=== PATIENT | male | born 1950 | race Caucasian/White ===

== ENCOUNTER → 2018-07-15 | Outpatient (CLI) | payer MEDICARE ==
[~2018-07-15] MED LIST: ASPI325T25 PO
[2018-07-15 10:11] LABS: HEMATOCRIT 47.9 % (42.0-52.0); HEMOGLOBIN 15.9 g/dl (13.5-17.5); MEAN CORPUSCULAR HEMOGLOBIN 28.5 pg (27.0-33.0); MEAN CORPUSCULAR HGB CONC 33.2 g/dl (32.0-36.5); PLATELET COUNT, AUTOMATED 290 10^3/uL (150-450); RED BLOOD COUNT 5.57 10^6/uL (4.30-6.10); WHITE BLOOD COUNT 7.9 10^3/uL (4.0-10.0)
[2018-07-15 10:24] LABS: INR 0.97
[2018-07-15 10:44] LABS: ERYTHROCYTE SEDIMENTATION RATE 2 mm/hr (0-20)
[2018-07-15 11:13] LABS: ALT/SGPT 28 U/L (12-78); BLOOD UREA NITROGEN 13 MG/DL (7-18); CALCIUM LEVEL 9.2 MG/DL (8.8-10.2); CARBON DIOXIDE LEVEL 23 MEQ/L (21-32); CHLORIDE LEVEL 105 MEQ/L (98-107); CREATININE FOR GFR 1.07 MG/DL (0.70-1.30); GLOMERULAR FILTRATION RATE > 60.0 (>49); GLUCOSE, FASTING 98 MG/DL (70-100); POTASSIUM SERUM 4.5 MEQ/L (3.5-5.1); SODIUM LEVEL 139 MEQ/L (136-145)
[2018-07-15 11:14] LABS: ALBUMIN 3.9 GM/DL (3.2-5.2); BILIRUBIN,TOTAL 0.7 MG/DL (0.2-1.0); TOTAL PROTEIN 7.4 GM/DL (6.4-8.2)
--- NOTE | 2018-07-15 12:17 | REP ---
Chest two views HISTORY: Left knee arthritis Comparison: None The lungs are clear. The heart is normal in size. The pulmonary vasculature is normal in appearance. The bony structure is intact. IMPRESSION: No acute disease. Electronically Signed by Giorgio Sherwood MD 07/15/2018 12:07 P
--- NOTE | 2018-07-15 22:30 | ECGEPIP ---
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 Low limb lead voltages. No prior ECG available for comparison at the time of interpretation. Electronically Signed On 07-15-2018 22:30:06 EST by Alec Lange
== END ==
LOC: M LAB 09:04
PROVIDERS: ATTEND Orthopaedic Surgery
DX: Z01.818 Encounter for other preprocedural examination (principal)

== ENCOUNTER 2018-07-29 07:30 | Inpatient (IN) | payer MEDICARE ==
--- NOTE | 2018-07-27 15:46 | HPE ---
DATE OF ADMISSION: 07/29/2018 CHIEF COMPLAINT: Left knee pain. HISTORY OF PRESENT ILLNESS: This is a pleasant 68-year-old male with progressively worsening left knee pain and stiffness. He has failed to improve with conservative treatment. He has elected for surgery for his continued symptoms. He has pain with weightbearing activities and his activities of daily living. X-rays of his knee are notable for advanced osteoarthritis of the left knee joint. He has consented for a left total knee arthroplasty by Dr. Erik Chung. Medical optimization was performed by Dr. Nieto's office. ALLERGIES: PENICILLIN and LIDOCAINE WITH EPINEPHRINE causes him tachycardia. CURRENT MEDICATIONS: None. PAST MEDICAL HISTORY: None. PAST SURGICAL HISTORY: Open reduction internal fixation (ORIF) complex right acetabular fracture in 1966, ORIF right wrist in 1976, spontaneous pneumothorax in 1997, and a right total hip replacement in 2001 and a hernia repair in 2011. SOCIAL HISTORY: This patient is retired. He does not smoke and rarely drinks alcohol. FAMILY HISTORY: Noncontributory. REVIEW OF SYSTEMS: This patient denies chest pain, heart palpitations, cough, wheezing, difficulty breathing and shortness of breath. He denies abdominal pain, nausea, vomiting, diarrhea or constipation. He denies recent upper respiratory infection or urinary tract infection symptoms. He does complain of persistent pain in his left knee and pain with weightbearing activities in the left knee. PHYSICAL EXAMINATION: GENERAL: He is a well-nourished, well-developed, in no acute distress, alert male patient. He walks with a Trendelenburg gait from his right total hip arthroplasty. He is not using assistive devices. VITAL SIGNS: Blood pressure 124/82, pulse 72, temperature of 97.8, height is 65, weight 152, respirations of 18. NECK: Supple without adenopathy or jugular venous distension. There were no carotid bruits appreciated upon auscultation. LUNGS: Clear to auscultation without rales or wheeze throughout. HEART: Regular rate and rhythm. ABDOMEN: Bowel sounds were present. EXTREMITIES: Examination of the knee revealed intact skin. He had decreased range of motion secondary to pain and stiffness. The limb was neurovascularly intact. LABORATORY DATA: EKG showed sinus rhythm at 62 beats per minute. Chest x-ray showed no acute cardiopulmonary disease processes. Prothrombin time 13.0, INR 0.97. CBC within normal limits. Sedimentation rate was 2, glucose 98, BUN 13, creatinine 1.07, sodium 139, potassium 4.5. IMPRESSION: Symptomatic osteoarthritis of the left knee joint. PLAN: Consented for a left total knee arthroplasty by Dr. Erik Chung.
[~2018-07-29] VITALS: Ht 195.6 cm; Wt 68.0 kg
[~2018-07-29 07:30] MED LIST changes: +CLINDAMYCIN 900 MG in APPROPRIATE DILUENT 1 EA IV ONE; +LR 1,000 ML IV ONE
[2018-07-29] MEDS ORDERED: CLINDAMYCIN INJ 900MG/6ML VIAL As Ordered ONE (09:49)
[2018-07-29] MEDS ORDERED: BUPIVACAINE LIPOSOME/PF 1.3% 20ML VIAL (13.3MG/ML)(EXPAREL)(C9290 PER1MG) As Ordered ONE (09:50)
[2018-07-29] MEDS ORDERED: TRANEXAMIC ACID 100 MG/ML 10ML VIAL As Ordered ONE ×2 (09:51→11:40)
[2018-07-29] MEDS ORDERED: EPINEPHrine INJ 1 MG/ML 1ML AMP As Ordered ONE (09:51)
[2018-07-29] MEDS ORDERED: BUPIVACAINE HCL 0.25% 30 ML VIAL As Ordered ONE (10:30)
[2018-07-29] MEDS ORDERED: BUPIVACAINE HCL 0.25% 10 ML VIAL As Ordered ONE (10:30)
[2018-07-29] MEDS ORDERED: MIDAZOLAM INJ 2 MG/2 ML VIAL (J2250) As Ordered ONE ×2 (10:38→11:03)
[2018-07-29] MEDS ORDERED: fentaNYL 100 MCG/2 ML INJECTION (J3010) As Ordered ONE ×2 (10:38→11:03)
[2018-07-29] MEDS ORDERED: PROPOFOL 200 MG/20 ML VIAL As Ordered ONE (11:03)
[2018-07-29] MEDS ORDERED: LIDOCAINE 2% INJ 100 MG/5 ML SDV (FOR ANES.) As Ordered ONE (11:04)
[2018-07-29] MEDS ORDERED: BUPIVACAINE/DEXTROSE 0.75% 2 ML AMP As Ordered ONE (11:27)
[2018-07-29] MEDS ORDERED: fentaNYL 100 MCG/2 ML INJECTION (J3010) IV ONE (11:45)
[2018-07-29] MEDS ORDERED: MIDAZOLAM INJ 2 MG/2 ML VIAL (J2250) IV ONE (11:45)
--- NOTE | 2018-07-29 11:48 | IPN ---
DATE: 07/29/2018 The patient seen and examined. He wished to have a left total knee arthroplasty. He understands the nature of this, the risks associated with it including bleeding, infection, damage to nerves, vessels, persistent pain, wear loosening, blood clots, medical problems, among others. All questions were answered.
[2018-07-29] MEDS ORDERED: ONDANSETRON 4MG/2ML VIAL (J2405) As Ordered ONE (12:42)
[2018-07-29] MEDS ORDERED: KETOROLAC 60 MG/2 ML VIAL (J1885) As Ordered ONE (12:42)
[2018-07-29] MEDS ORDERED: dexameTHASONE 4 MG/ML 1ML VIAL (J1100) As Ordered ONE (12:42)
[2018-07-29] MEDS ORDERED: MORPHINE 4 MG/ML 1ML VIAL/SYRINGE (J2270) IV PRN ×2 (13:45→14:00)
[2018-07-29] MEDS ORDERED: ONDANSETRON 4MG/2ML VIAL (J2405) IV PRN ×2 (13:45→14:00)
[2018-07-29] MEDS ORDERED: MEPERIDINE INJ 25 MG/ML VIAL (J2175) IV PRN (13:45)
[2018-07-29] MEDS ORDERED: fentaNYL 100 MCG/2 ML INJECTION (J3010) IV PRN (13:45)
[2018-07-29] MEDS ORDERED: FLEET ENEMA PR PRN (14:00)
[2018-07-29] MEDS ORDERED: ACETAMINOPHEN TAB 650MG DOSE (2X325MG) PO PRN (14:00)
--- NOTE | 2018-07-29 14:28 | REP ---
Left knee three views: There is a total knee arthroplasty with the components tightly applied and in satisfactory positions alignment. Skin vikram and intra-articular air identified as a postsurgical change. Electronically Signed by Mihir Dean MD 07/29/2018 02:20 P
[2018-07-29 14:30] VITALS: BP 140/85
[2018-07-29 15:00] VITALS: BP 139/85
--- NOTE | 2018-07-29 15:16 | RO ---
DATE OF PROCEDURE: 07/29/2018 PREOPERATIVE DIAGNOSIS: Left knee osteoarthritis. POSTOPERATIVE DIAGNOSIS: Left knee osteoarthritis. PROCEDURE: Left total knee arthroplasty using an Attune size 6 femur, size 7 tibial tray, 8 polyethylene, 35 patellar button. SURGEON: Erik Chung MD [employer] BROKER: MARTINA Gunn ANESTHESIA: Spinal ESTIMATED BLOOD LOSS: Less than 50. COMPLICATIONS: None. INDICATIONS: This is a 68-year-old gentleman who has had gradually worsening left knee pain with significant arthritis failing conservative management, he wished to go ahead with surgical treatment. He understood the nature this and the risks associated with it. DESCRIPTION OF PROCEDURE: The patient was taken to the operating room and placed in supine position after spinal anesthesia was induced. The left lower extremity was prepped and draped in the usual sterile fashion. Time-out was performed. I then created a longitudinal incision over the anterior aspect the left knee. Sharp dissection was carried down through subcutaneous tissue. I performed a medial parapatellar arthrotomy per routine, flexed the knee up and used a canal initiating reamer on the femoral side, followed by the intramedullary guide set at 5 valgus 9 mm cut, this was pinned in place. The distal femoral cut was made protecting soft tissue. I then sized the femur to be a 6 and the remaining cuts were made after the drill holes were placed in the end of the femur. I then prepared the tibia. The retractors were placed. I placed the alignment guide in the appropriate amount of valgus and posterior slope and then pinned this in place at about 4 mm off the low side. The proximal tibia cut was made removing excess bone. I also made the cut for the sulcus and the femur after pinning the block in place and using a saw to create this cut. At this point, documentum consultant was used. Soft tissue and osteophytes removed from either side of the knee. Spacer block was used and it felt like a size 7 or 8 would be most appropriate. I then removed the spacer block, prepared the tibia, the drill holes placed followed by the broach and the trial components were placed, which fit very nicely. I then trialed the actual polyethylene after inserting the trial components and put the knee through range of motion, it was very well balanced and had excellent stability. I freehand cut the patella, removing about 7 mm of bone and sized to be a 35. Drill holes were placed at the end of the femur. The occupational therapist's assistant prepared the bone cement in the modern technique on the back table. I irrigated the bony surfaces, placed the Exparel solution in the deep tissues and once we irrigated and dried, I cemented on the tibial tray, placed the tibial polyethylene and cemented on the femoral component, removed excess bone cement, cemented on the patella, held this in place until the cement had hardened. I closed the deep layer with interrupted #1 Vicryl suture and running Stratafix suture with a watertight closure. I put the knee through range of motion, again very pleased with it. I irrigated, closed the subcutaneous with #2-0 Vicryl, skin with vikram. Sterile dressing was applied. Tourniquet was deflated, and he was taken to recovery in stable condition. There were no known complications. The plan will be routine postop. The occupational therapist's assistant was instrumental in holding retractors and assisting in making one of bone cuts, assisting in mixing the bone cement and wound closure.
[2018-07-29] MEDS: LR 1,000 ML IV SCH ×2 (15:58→18:26)
[2018-07-29 16:00] VITALS: BP 138/84
[2018-07-29 18:00] VITALS: BP 126/75
[2018-07-29] MEDS: PERCOCET 5MG/325MG TAB PO PRN (18:26)
[2018-07-29 19:00] VITALS: BP 115/76
[2018-07-29] MEDS: CLINDAMYCIN 900 MG in APPROPRIATE DILUENT 1 EA IV SCH (21:39)
[2018-07-29 22:00] VITALS: BP 124/69
[2018-07-29] MEDS ORDERED: CALCIUM CARBONATE 500 MG CHEW U/D PO PRN (22:15)
[2018-07-30] MEDS: CLINDAMYCIN 900 MG in APPROPRIATE DILUENT 1 EA IV SCH (03:57)
[2018-07-30] MEDS: PERCOCET 5MG/325MG TAB PO PRN (04:02)
[2018-07-30 06:00] VITALS: BP 131/70
[2018-07-30] MEDS ORDERED: ONDANSETRON 4 MG TAB (S0181) PO PRN (06:30)
[2018-07-30] MEDS ORDERED: PERCOCET 5MG/325MG TAB PO PRN ×2 (06:30)
[2018-07-30] MEDS ORDERED: PERC5TAB12 PO (06:57)
[2018-07-30] MEDS ORDERED: XARE10TA PO (06:57)
[2018-07-30 07:08] LABS: HEMATOCRIT 35.1 % (42.0-52.0); HEMOGLOBIN 11.6 g/dl (13.5-17.5); MEAN CORPUSCULAR HEMOGLOBIN 28.5 pg (27.0-33.0); MEAN CORPUSCULAR VOLUME 86.2 fl (80.0-96.0); PLATELET COUNT, AUTOMATED 254 10^3/uL (150-450); RED BLOOD COUNT 4.07 10^6/uL (4.30-6.10); WHITE BLOOD COUNT 12.8 10^3/uL (4.0-10.0)
[2018-07-30] MEDS ORDERED: MIRALAX *UNIT DOSE* 17GM PACKET PO SCH (09:00)
[2018-07-30] MEDS ORDERED: MOM 30ML SUSPENSION UDC PO SCH (09:00)
[2018-07-30] MEDS ORDERED: RIVAROXABAN 10 MG TAB (XARELTO) PO SCH (18:00)
== END 2018-07-30 12:51 | disposition home or self-care (01) | DRG 470 ==
LOC: M OR 09:08 → M MS5PR 14:20
PROVIDERS: ADMIT Orthopaedic Surgery; ATTEND Orthopaedic Surgery
PROC: 0SRD0J9 Replacement of Left Knee Joint with Synthetic Substitute, Cemented, Open Approach (ICD-10-PCS; principal; 2018-07-29 12:30)
DX: M17.12 Unilateral primary osteoarthritis, left knee (principal); Z88.0 Allergy status to penicillin; Z88.8 Allergy status to other drugs, medicaments and biological substances

== ENCOUNTER → 2021-05-22 | Outpatient (REF) | payer MEDICARE ==
[~2021-05-22] MED LIST changes: +ASPI-255 PO; -ASPI325T25 PO; -CLINDAMYCIN 900 MG in APPROPRIATE DILUENT 1 EA IV ONE; -LR 1,000 ML IV ONE; +PERC5TAB12 PO; +XARE10TA PO
[2021-05-22 17:35] LABS: APPEARANCE, URINE HAZY (CLEAR); BACTERIA, URINE AUTO NEGATIVE (NEGATIVE); BILIRUBIN, URINE AUTO NEGATIVE (NEGATIVE); BLOOD, URINE BLOOD 1+ (NEGATIVE); COLOR, URINE YELLOW (YELLOW); GLUCOSE, URINE (UA) AUTO NEGATIVE (NEGATIVE); KETONE, URINE AUTO TRACE mg/dL (NEGATIVE); LEUKOCYTE ESTERASE, URINE AUTO NEGATIVE (NEGATIVE); MUCUS, URINE MODERATE (NEGATIVE); NITRITE, URINE AUTO NEGATIVE (NEGATIVE); PROTEIN, URINE AUTO 1+ mg/dL (NEGATIVE); RBC, URINE AUTO 18 /HPF (0-3); SPECIFIC GRAVITY URINE AUTO 1.025 (1.002-1.035); SQUAMOUS EPITHELIAL CELL UR AU 0 /HPF (0-6); UROBILINOGEN, URINE AUTO 0.2 mg/dL (0.0-2.0); WBC, URINE AUTO 7 /HPF (0-3)
== END ==
LOC: M SMT 17:01
PROVIDERS: ATTEND Physician Assistant
DX: N40.1 Benign prostatic hyperplasia with lower urinary tract symptoms (principal)

== ENCOUNTER → 2022-02-21 | Outpatient (REF) | payer MEDICARE ==
[2022-02-21 15:33] LABS: APPEARANCE, URINE MANUAL CLEAR (CLEAR); COLOR, URINE MANUAL YELLOW (YELLOW); PROTEIN, URINE MANUAL TRACE mg/dL (NEGATIVE)
[2022-02-21 15:34] LABS: BILIRUBIN, URINE MANUAL NEGATIVE (NEGATIVE); BLOOD URINE MANUAL POSITIVE (NEGATIVE); GLUCOSE, URINE (UA) MANUAL NEGATIVE (NEGATIVE); KETONE, URINE MANUAL NEGATIVE (NEGATIVE); LEUKOCYTE ESTERASE, URINE MAN NEGATIVE (NEGATIVE); NITRITE, URINE MANUAL NEGATIVE (NEGATIVE); UROBILINOGEN, URINE MANUAL NORMAL (NORMAL)
[2022-02-21 15:49] LABS: WBC, URINE 15-20 /hpf (0-3)
[2022-02-21 15:50] LABS: BACTERIA, URINE SMALL AMOUNT; SQUAMOUS EPITHELIAL CELL URINE SMALL AMOUNT /hpf (SMALL AMT)
== END ==
LOC: M SMT 15:16
PROVIDERS: ATTEND Physician Assistant
DX: N40.1 Benign prostatic hyperplasia with lower urinary tract symptoms (principal); N13.9 Obstructive and reflux uropathy, unspecified

== ENCOUNTER → 2022-03-06 | Outpatient (REF) | payer MEDICARE | LOC: M SMT 17:01 | PROVIDERS: ATTEND Urology | DX: R31.29 Other microscopic hematuria (principal); R82.998 Other abnormal findings in urine ==

== ENCOUNTER 2022-04-15 06:14 | Day surgery (SDC) | payer MEDICARE ==
[~2022-04-15] VITALS: Ht 165.1 cm; Wt 68.5 kg
[~2022-04-15 06:14] MED LIST changes: +FINA5TAB2 PO; +FLOM0.4C39 PO; +PANT40TA29 PO; +VITMTA PO; +ceFAZolin SOD 2 GM in IV 1 EA IV ONE
[2022-04-15] MEDS ORDERED: LR 1,000 ML IV SCH ×2 (07:00→08:35)
[2022-04-15] MEDS ORDERED: propofoL 200 MG/20 ML VIAL As Ordered ONE (07:16)
[2022-04-15] MEDS ORDERED: ONDANSETRON 4MG 2ML VIAL As Ordered ONE (07:17)
[2022-04-15] MEDS ORDERED: dexameTHASONE 4 MG/ML 1ML VIAL (J1100 PER 1MG) As Ordered ONE (07:17)
[2022-04-15] MEDS ORDERED: fentaNYL 100 MCG/2 ML INJECTION As Ordered ONE ×2 (07:17→08:08)
[2022-04-15] MEDS ORDERED: LIDOCAINE 2% 100MG/5ML SDV (FOR ANES.) As Ordered ONE (07:17)
[2022-04-15] MEDS ORDERED: CIPROFLOXACIN 400 MG in IV 1 EA IV ONE (07:20)
[2022-04-15] MEDS ORDERED: ACETAMINOPHEN 1000MG 100ML IV BAG As Ordered ONE (08:21)
[2022-04-15] MEDS ORDERED: ONDANSETRON 4MG 2ML VIAL IV PRN (08:35)
[2022-04-15] MEDS ORDERED: HYDROMORPHONE HCL 0.5 MG/ 0.5 ML SYRINGE (J1170 PER 1) IV PRN (08:35)
[2022-04-15] MEDS ORDERED: oxyCODONE 5MG TAB PO PRN (08:35)
[2022-04-15] MEDS ORDERED: fentaNYL 100 MCG/2 ML INJECTION IV PRN (08:35)
[2022-04-15] MEDS ORDERED: MACR100C43 PO (08:37)
[2022-04-15] MEDS ORDERED: OXYB5TAB10 PO (08:37)
[2022-04-15 09:10] VITALS: BP 137/81
== END 2022-04-15 10:25 | disposition home or self-care (01) ==
LOC: M SDC 06:14
PROVIDERS: ATTEND Urology
DX: C67.9 Malignant neoplasm of bladder, unspecified (principal); K21.9 Gastro-esophageal reflux disease without esophagitis; Z79.899 Other long term (current) drug therapy; R51.9 Headache, unspecified; N40.0 Benign prostatic hyperplasia without lower urinary tract symptoms; Z88.0 Allergy status to penicillin; Z88.8 Allergy status to other drugs, medicaments and biological substances
CPT/HCPCS: 52240; 88305; J0131; J0744; J1100; J2405; J3010

== ENCOUNTER → 2022-08-27 | Outpatient (REF) | payer MEDICARE ==
[~2022-08-27] MED LIST changes: +MACR100C43 PO; +OXYB5TAB10 PO; -ceFAZolin SOD 2 GM in IV 1 EA IV ONE
[2022-08-27 17:38] LABS: APPEARANCE, URINE MANUAL CLEAR (CLEAR); BILIRUBIN, URINE MANUAL NEGATIVE (NEGATIVE); BLOOD URINE MANUAL NEGATIVE (NEGATIVE); COLOR, URINE MANUAL LT YELLOW (YELLOW); GLUCOSE, URINE (UA) MANUAL NEGATIVE (NEGATIVE); KETONE, URINE MANUAL NEGATIVE (NEGATIVE); LEUKOCYTE ESTERASE, URINE MAN NEGATIVE (NEGATIVE); NITRITE, URINE MANUAL NEGATIVE (NEGATIVE); PROTEIN, URINE MANUAL NEGATIVE (NEGATIVE); UROBILINOGEN, URINE MANUAL NORMAL (NORMAL)
== END ==
LOC: M SMT 13:07
PROVIDERS: ATTEND Urology
DX: Z85.51 Personal history of malignant neoplasm of bladder (principal)

== ENCOUNTER → 2023-02-04 | Outpatient (REF) | payer MEDICARE ==
[2023-02-04 18:07] LABS: APPEARANCE, URINE CLEAR (CLEAR); BACTERIA, URINE AUTO NEGATIVE (NEGATIVE); BILIRUBIN, URINE AUTO NEGATIVE (NEGATIVE); BLOOD, URINE BLOOD NEGATIVE (NEGATIVE); COLOR, URINE YELLOW (YELLOW); GLUCOSE, URINE (UA) AUTO NEGATIVE (NEGATIVE); KETONE, URINE AUTO NEGATIVE (NEGATIVE); LEUKOCYTE ESTERASE, URINE AUTO NEGATIVE (NEGATIVE); MUCUS, URINE SMALL (NEGATIVE); NITRITE, URINE AUTO NEGATIVE (NEGATIVE); PROTEIN, URINE AUTO NEGATIVE (NEGATIVE); RBC, URINE AUTO 0 /HPF (0-3); SQUAMOUS EPITHELIAL CELL UR AU 0 /HPF (0-6); UROBILINOGEN, URINE AUTO 0.2 mg/dL (0.0-2.0); WBC, URINE AUTO 1 /HPF (0-3)
== END ==
LOC: M SMT 17:16
PROVIDERS: ATTEND Urology
DX: Z85.51 Personal history of malignant neoplasm of bladder (principal)

== ENCOUNTER → 2023-06-04 | Outpatient (REF) | payer MEDICARE ==
[~2023-06-04] MED LIST changes: -OXYB5TAB10 PO; +OXYB5TAB11 PO
[2023-06-04 17:50] LABS: APPEARANCE, URINE CLEAR (CLEAR); BACTERIA, URINE AUTO NEGATIVE (NEGATIVE); BILIRUBIN, URINE AUTO NEGATIVE (NEGATIVE); BLOOD, URINE BLOOD NEGATIVE (NEGATIVE); COLOR, URINE YELLOW (YELLOW); GLUCOSE, URINE (UA) AUTO NEGATIVE (NEGATIVE); KETONE, URINE AUTO NEGATIVE (NEGATIVE); LEUKOCYTE ESTERASE, URINE AUTO NEGATIVE (NEGATIVE); MUCUS, URINE SMALL (NEGATIVE); NITRITE, URINE AUTO NEGATIVE (NEGATIVE); PROTEIN, URINE AUTO NEGATIVE (NEGATIVE); RBC, URINE AUTO 0 /HPF (0-3); SPECIFIC GRAVITY URINE AUTO 1.024 (1.002-1.035); SQUAMOUS EPITHELIAL CELL UR AU 0 /HPF (0-6); UROBILINOGEN, URINE AUTO 0.2 mg/dL (0.0-2.0); WBC, URINE AUTO 2 /HPF (0-3)
== END ==
LOC: M SMT 16:35
PROVIDERS: ATTEND Urology
DX: Z85.51 Personal history of malignant neoplasm of bladder (principal)

== ENCOUNTER → 2023-10-01 | Outpatient (REF) | payer MEDICARE, OTHER ==
[~2023-10-01] MED LIST changes: -OXYB5TAB11 PO; +OXYB5TAB14 PO
[2023-10-01 15:47] LABS: APPEARANCE, URINE CLEAR (CLEAR); BACTERIA, URINE AUTO NEGATIVE (NEGATIVE); BILIRUBIN, URINE AUTO NEGATIVE (NEGATIVE); BLOOD, URINE BLOOD NEGATIVE (NEGATIVE); COLOR, URINE YELLOW (YELLOW); GLUCOSE, URINE (UA) AUTO NEGATIVE (NEGATIVE); KETONE, URINE AUTO NEGATIVE (NEGATIVE); LEUKOCYTE ESTERASE, URINE AUTO NEGATIVE (NEGATIVE); MUCUS, URINE SMALL (NEGATIVE); NITRITE, URINE AUTO NEGATIVE (NEGATIVE); PROTEIN, URINE AUTO NEGATIVE (NEGATIVE); RBC, URINE AUTO 4 /HPF (0-3); SQUAMOUS EPITHELIAL CELL UR AU 0 /HPF (0-6); UROBILINOGEN, URINE AUTO 0.2 mg/dL (0.0-2.0); WBC, URINE AUTO 1 /HPF (0-3)
== END ==
LOC: M SMT 15:11
PROVIDERS: ATTEND Urology
DX: Z85.51 Personal history of malignant neoplasm of bladder (principal); R82.89 Other abnormal findings on cytological and histological examination of urine

== ENCOUNTER → 2024-02-03 | Outpatient (REF) | payer OTHER ==
[2024-02-03 18:44] LABS: APPEARANCE, URINE CLEAR (CLEAR); BACTERIA, URINE AUTO NEGATIVE (NEGATIVE); BILIRUBIN, URINE AUTO NEGATIVE (NEGATIVE); BLOOD, URINE BLOOD NEGATIVE (NEGATIVE); COLOR, URINE YELLOW (YELLOW); GLUCOSE, URINE (UA) AUTO NEGATIVE (NEGATIVE); KETONE, URINE AUTO NEGATIVE (NEGATIVE); LEUKOCYTE ESTERASE, URINE AUTO NEGATIVE (NEGATIVE); MUCUS, URINE SMALL (NEGATIVE); NITRITE, URINE AUTO NEGATIVE (NEGATIVE); PROTEIN, URINE AUTO NEGATIVE (NEGATIVE); RBC, URINE AUTO 0 /HPF (0-3); SQUAMOUS EPITHELIAL CELL UR AU 0 /HPF (0-6); UROBILINOGEN, URINE AUTO 0.2 mg/dL (0.0-2.0); WBC, URINE AUTO 0 /HPF (0-3)
== END ==
LOC: M SMT 16:57
PROVIDERS: ATTEND Urology
DX: Z85.51 Personal history of malignant neoplasm of bladder (principal)

== ENCOUNTER 2024-03-17 10:54 | Day surgery (SDC) | payer OTHER ==
[~2024-03-17] VITALS: Ht 165.1 cm; Wt 67.8 kg
[~2024-03-17 10:54] MED LIST changes: +MITOMYCIN 40MG IN 40ML SWFI SYRINGE INTRAVESIC ONE; +OMEP-173 PO; +TADA20TA PO; +TAMS1CAP17 PO
[2024-03-17] MEDS ORDERED: NS 1,000 ML IV SCH (11:20)
[2024-03-17] MEDS ORDERED: LR 1,000 ML IV SCH ×2 (11:20→14:45)
[2024-03-17] MEDS ORDERED: ROCURONIUM BROMIDE 50MG/5ML VIAL As Ordered ONE (13:43)
[2024-03-17] MEDS ORDERED: propofoL 200 MG/20 ML VIAL As Ordered ONE (13:43)
[2024-03-17] MEDS ORDERED: LIDOCAINE 2% 100MG/5ML SDV (FOR ANES.) As Ordered ONE (13:43)
[2024-03-17] MEDS ORDERED: ONDANSETRON 4MG 2ML VIAL As Ordered ONE (13:43)
[2024-03-17] MEDS ORDERED: SUGAMMADEX SODIUM 500 MG/5 ML VIAL (BRIDION) As Ordered ONE (13:44)
[2024-03-17] MEDS ORDERED: fentaNYL 100 MCG/2 ML INJECTION As Ordered ONE (13:44)
[2024-03-17] MEDS ORDERED: KETOROLAC 60MG 2ML VIAL As Ordered ONE (13:44)
[2024-03-17] MEDS: ceFAZolin SOD 2 GM in IV 1 EA IV ONE (14:00)
[2024-03-17] MEDS ORDERED: ACETAMINOPHEN 1000MG 100ML IV BAG As Ordered ONE (14:21)
[2024-03-17] MEDS: MITOMYCIN 40MG IN 40ML SWFI SYRINGE INTRAVESIC ONE (14:26)
[2024-03-17] MEDS ORDERED: HYDR-3713 PO (14:37)
[2024-03-17] MEDS ORDERED: diphenhydrAMINE 50MG/ML VIAL IV PRN (14:45)
[2024-03-17] MEDS ORDERED: MEPERIDINE 25 MG/ML 1ML VIAL IV PRN (14:45)
[2024-03-17] MEDS ORDERED: METOCLOPRAMIDE INJ 10MG/2ML VIAL IV PRN (14:45)
[2024-03-17] MEDS ORDERED: fentaNYL 100 MCG/2 ML INJECTION IV PRN (14:45)
[2024-03-17] MEDS ORDERED: ONDANSETRON 4MG 2ML VIAL IV PRN (14:45)
[2024-03-17] MEDS: oxyCODONE 5MG TAB PO PRN (14:54)
[2024-03-17] MEDS: HYDROMORPHONE HCL 0.5 MG/ 0.5 ML SYRINGE IV PRN (14:56)
[2024-03-17 15:35] VITALS: BP 134/78; TEMP 98; O2SAT 96
== END 2024-03-17 16:20 | disposition home or self-care (01) ==
LOC: M SDC 10:54
PROVIDERS: ATTEND Urology
DX: C67.9 Malignant neoplasm of bladder, unspecified (principal); N40.0 Benign prostatic hyperplasia without lower urinary tract symptoms; K21.9 Gastro-esophageal reflux disease without esophagitis; Z79.899 Other long term (current) drug therapy; Z88.0 Allergy status to penicillin; Z88.8 Allergy status to other drugs, medicaments and biological substances
CPT/HCPCS: 51720; 52235; 88305; J0131; J0690; J1100; J1171; J1885; J2405; J3010; J9280

== ENCOUNTER → 2024-04-21 | Outpatient (REF) | payer OTHER ==
[~2024-04-21] MED LIST changes: +HYDR-3713 PO; +LIDO30CR18 TOP; -MITOMYCIN 40MG IN 40ML SWFI SYRINGE INTRAVESIC ONE; +ONDA-84 PO; +PROC10TA5 PO
[2024-04-21 19:16] LABS: APPEARANCE, URINE HAZY (CLEAR); BACTERIA, URINE AUTO 1+ (NEGATIVE); BILIRUBIN, URINE AUTO NEGATIVE (NEGATIVE); BLOOD, URINE BLOOD 3+ (NEGATIVE); COLOR, URINE YELLOW (YELLOW); GLUCOSE, URINE (UA) AUTO NEGATIVE (NEGATIVE); KETONE, URINE AUTO NEGATIVE (NEGATIVE); LEUKOCYTE ESTERASE, URINE AUTO 3+ (NEGATIVE); MUCUS, URINE SMALL (NEGATIVE); NITRITE, URINE AUTO NEGATIVE (NEGATIVE); PROTEIN, URINE AUTO 1+ mg/dL (NEGATIVE); RBC, URINE AUTO 39 /HPF (0-3); SPECIFIC GRAVITY URINE AUTO 1.011 (1.002-1.035); SQUAMOUS EPITHELIAL CELL UR AU 0 /HPF (0-6); UROBILINOGEN, URINE AUTO 0.2 mg/dL (0.0-2.0); WBC, URINE AUTO 180 /HPF (0-3)
== END ==
LOC: M SMT 17:31
PROVIDERS: ATTEND Urology
DX: N40.0 Benign prostatic hyperplasia without lower urinary tract symptoms (principal)

== ENCOUNTER → 2024-05-27 | Outpatient (CLI) | payer MEDICARE ==
[~2024-05-27] VITALS: Ht 165.1 cm; Wt 69.0 kg
[~2024-05-27] MED LIST changes: -LIDO30CR18 TOP; +LIDOCAINE 1% MDV 20ML VIAL As Ordered ONE; +MIDAZOLAM INJ 2MG/2ML VIAL As Ordered ONE; +NS (Normal Saline) 0.9% 1,000 ML IV SCH; -ONDA-84 PO; -PROC10TA5 PO; +ceFAZolin 2 GM/D5W 50 ML IV BAG As Ordered ONE; +ceFAZolin SOD 2 GM in IV 1 EA IV ONE; +fentaNYL 100 MCG/2 ML INJECTION As Ordered ONE
[2024-05-27 13:10] VITALS: TEMP 98.4
[2024-05-27 14:56] VITALS: BP 156/89; O2SAT 97
== END ==
LOC: M IRPRO 12:53
PROVIDERS: ATTEND Internal Medicine Medical Oncology
DX: C67.9 Malignant neoplasm of bladder, unspecified (principal)
CPT/HCPCS: 36561; 99152; C1894; J0690; J1642; J2250; J3010

== ENCOUNTER → 2024-06-07 | Outpatient (CLI) | payer MEDICARE ==
[~2024-06-07] MED LIST changes: +LIDO30CR18 TOP; -LIDOCAINE 1% MDV 20ML VIAL As Ordered ONE; -MIDAZOLAM INJ 2MG/2ML VIAL As Ordered ONE; -NS (Normal Saline) 0.9% 1,000 ML IV SCH; +ONDA-84 PO; +PROC10TA5 PO; -ceFAZolin 2 GM/D5W 50 ML IV BAG As Ordered ONE; -ceFAZolin SOD 2 GM in IV 1 EA IV ONE; -fentaNYL 100 MCG/2 ML INJECTION As Ordered ONE
== END ==
LOC: M PLARAD 13:51
PROVIDERS: ATTEND Internal Medicine Medical Oncology
DX: C68.0 Malignant neoplasm of urethra (principal)
CPT/HCPCS: 78815; A9552

== ENCOUNTER → 2024-06-07 | Outpatient (CLI) | payer MEDICARE ==
[2024-06-07 15:29] LABS: BASO % 0.3 % (0.0-1.0); EOS # 0.1 10^3/uL (0.0-0.5); HEMATOCRIT 44.8 % (42.0-52.0); HEMOGLOBIN 15.2 g/dl (13.5-17.5); LYMPH # 1.5 10^3/uL (1.5-5.0); LYMPH % 20.7 % (24.0-44.0); MEAN CORPUSCULAR HEMOGLOBIN 28.8 pg (27.0-33.0); MEAN CORPUSCULAR HGB CONC 33.9 g/dl (32.0-36.5); MONO # 0.2 10^3/uL (0.0-0.8); MONO % 2.1 % (2.0-8.0); NEUTROPHILS # 5.5 10^3/uL (1.5-8.5); NEUTROPHILS % 75.6 % (36.0-66.0); PLATELET COUNT, AUTOMATED 258 10^3/uL (150-450); RED BLOOD COUNT 5.27 10^6/uL (4.30-6.10); WHITE BLOOD COUNT 7.3 10^3/uL (4.0-10.0)
[2024-06-07 16:06] LABS: AST/SGOT 47.99999 U/L (<34); BILIRUBIN,TOTAL 0.8 MG/DL (0.3-1.2); CALCIUM LEVEL 9.3 MG/DL (8.3-10.6); CREATININE FOR GFR 1.53 MG/DL (0.70-1.30); GLOMERULAR FILTRATION RATE 47.7 (>42); MAGNESIUM LEVEL 1.7 MG/DL (1.8-2.4); POTASSIUM SERUM 4.5 MMOL/L (3.5-5.1); TOTAL PROTEIN 7.5 G/DL (5.7-8.2)
== END ==
LOC: M PLALAB 13:55
PROVIDERS: ATTEND Internal Medicine Medical Oncology
DX: C68.0 Malignant neoplasm of urethra (principal)

== ENCOUNTER → 2024-06-10 | Outpatient (CLI) | payer MEDICARE | LOC: M ONCR 13:53 | PROVIDERS: ATTEND General Practice | DX: C67.9 Malignant neoplasm of bladder, unspecified (principal); C68.0 Malignant neoplasm of urethra; Z92.21 Personal history of antineoplastic chemotherapy; Z80.0 Family history of malignant neoplasm of digestive organs; Z80.1 Family history of malignant neoplasm of trachea, bronchus and lung; Z80.8 Family history of malignant neoplasm of other organs or systems; Z88.1 Allergy status to other antibiotic agents; Z88.0 Allergy status to penicillin; Z88.8 Allergy status to other drugs, medicaments and biological substances; Z79.899 Other long term (current) drug therapy ==

== ENCOUNTER → 2024-07-28 | Outpatient (CLI) | payer MEDICARE ==
[~2024-07-28] MED LIST changes: +ISOVUE-370 76% 100ML VIAL As Ordered ONE; +MIRA3350 PO
== END ==
LOC: M RAD 11:14
PROVIDERS: ATTEND General Practice
DX: C67.0 Malignant neoplasm of trigone of bladder (principal)
CPT/HCPCS: 71260; 74177; Q9967

== ENCOUNTER → 2024-08-06 | Outpatient (CLI) | payer MEDICARE ==
[~2024-08-06] MED LIST changes: -ISOVUE-370 76% 100ML VIAL As Ordered ONE
== END ==
LOC: M ONCR 11:50
PROVIDERS: ATTEND General Practice
DX: C67.0 Malignant neoplasm of trigone of bladder (principal); C77.5 Secondary and unspecified malignant neoplasm of intrapelvic lymph nodes; R35.0 Frequency of micturition; R35.1 Nocturia; Z79.620 Long term (current) use of immunosuppressive biologic; Z79.899 Other long term (current) drug therapy; Z92.21 Personal history of antineoplastic chemotherapy; Z88.0 Allergy status to penicillin; Z88.1 Allergy status to other antibiotic agents; Z88.8 Allergy status to other drugs, medicaments and biological substances; Z90.79 Acquired absence of other genital organ(s)

== ENCOUNTER 2024-08-17 08:02 | Outpatient (RCR) | payer MEDICARE | END 2024-08-23 | LOC: M ONCR 08:02 | PROVIDERS: ATTEND General Practice | DX: Z51.0 Encounter for antineoplastic radiation therapy (principal); C67.0 Malignant neoplasm of trigone of bladder ==

== ENCOUNTER → 2024-09-22 | Outpatient (RCR) | payer MEDICARE ==
[~2024-09-22] MED LIST changes: -FLOM0.4C39 PO; +TAMS-18 PO
== END ==
LOC: M ONCR 08-24 09:58
PROVIDERS: ATTEND General Practice
DX: Z51.0 Encounter for antineoplastic radiation therapy (principal); C67.0 Malignant neoplasm of trigone of bladder

== ENCOUNTER → 2025-01-10 | Outpatient (CLI) | payer MEDICARE ==
[~2025-01-10] MED LIST changes: +IRON65TA2 PO; +ISOVUE-370 76% 100 ML VIAL As Ordered ONE; +MAGN400T2 PO; +OLAN15TA69 PO; +OLAN1TAB16 PO; +OXYB-54 PO
== END ==
LOC: M RAD 11:23
PROVIDERS: ATTEND General Practice
DX: C67.0 Malignant neoplasm of trigone of bladder (principal)
CPT/HCPCS: 71260; 74177; Q9967

== ENCOUNTER → 2025-01-11 | Outpatient (CLI) | payer MEDICARE ==
[~2025-01-11] MED LIST changes: -ISOVUE-370 76% 100 ML VIAL As Ordered ONE
== END ==
LOC: M ONCR 13:12
PROVIDERS: ATTEND General Practice
DX: C67.0 Malignant neoplasm of trigone of bladder (principal); Z92.21 Personal history of antineoplastic chemotherapy; Z92.3 Personal history of irradiation; Z88.0 Allergy status to penicillin; Z88.1 Allergy status to other antibiotic agents; Z88.8 Allergy status to other drugs, medicaments and biological substances; Z79.899 Other long term (current) drug therapy

== ENCOUNTER → 2025-04-08 | Outpatient (CLI) | payer MEDICARE ==
[~2025-04-08] MED LIST changes: +GABA-1171 PO; +ISOVUE-370 76% 100 ML VIAL As Ordered ONE
== END ==
LOC: M RAD 12:46
PROVIDERS: ATTEND General Practice
DX: C67.0 Malignant neoplasm of trigone of bladder (principal)
CPT/HCPCS: 74177; Q9967

== ENCOUNTER → 2025-04-26 | Outpatient (CLI) | payer MEDICARE ==
[~2025-04-26] MED LIST changes: -ISOVUE-370 76% 100 ML VIAL As Ordered ONE; +OXYB10TA23 PO
== END ==
LOC: M ONCR 14:08
PROVIDERS: ATTEND General Practice
DX: C67.9 Malignant neoplasm of bladder, unspecified (principal); C77.4 Secondary and unspecified malignant neoplasm of inguinal and lower limb lymph nodes; Z79.899 Other long term (current) drug therapy; Z88.0 Allergy status to penicillin; Z88.8 Allergy status to other drugs, medicaments and biological substances; Z92.21 Personal history of antineoplastic chemotherapy; Z92.3 Personal history of irradiation